=== PATIENT | male | born 1950 | race Caucasian/White ===

== ENCOUNTER 2018-10-17 19:42 | Emergency (ER) | payer OTHER ==
[~2018-10-17] VITALS: Ht 175.3 cm; Wt 102.9 kg
[2018-10-17] MEDS ORDERED: SODIUM CHLORIDE FLUSH 10ML SYR IVF ONE (20:30)
[2018-10-17 20:31] LABS: CULTURE INDICATED? NO; MICROSCOPIC NOT IND
[2018-10-17 20:51] LABS: BASOPHILS # (AUTO) 0.01 x10^3/uL (0-0.1); BASOPHILS % (AUTO) 0 % (0-1); EOSINOPHILS # (AUTO) 0.05 x10^3/uL (0-0.4); EOSINOPHILS % (AUTO) 1 % (1-7); LYMPHOCYTES # (AUTO) 0.74 x10^3/uL (1-3.4); LYMPHOCYTES % (AUTO) 9 % (22-44); MD NO; MEAN CORPUSCULAR HEMOGLOBIN 30.5 pg (27.5-34.5); MEAN CORPUSCULAR HGB CONC 33.4 g/dL (33.2-36.2); MEAN CORPUSCULAR VOLUME 91.4 fL (81-97); MEAN PLATELET VOLUME 8.4 fL (7.4-10.4); MONOCYTES # (AUTO) 0.23 x10^3/uL (0.2-0.8); MONOCYTES % (AUTO) 3 % (2-9); NEUTROPHILS # (AUTO) 7.72 x10^3/uL (1.8-6.8); NEUTROPHILS % (AUTO) 88 % (42-75); PLATELET COUNT 273 x10^3/uL (130-400); RED BLOOD COUNT 5.69 x10^6/uL (4.38-5.82); RED CELL DISTRIBUTION WIDTH 13.3 % (9.4-14.8)
[2018-10-17 21:03] LABS: ANION GAP 11 mmol/L (5-15); CALCIUM 8.7 mg/dL (8.5-10.1); CHLORIDE 104 mmol/L (98-107); CREATININE 1.81 mg/dL (0.7-1.3)
--- NOTE | 2018-10-17 22:15 | NUR ---
PT TO CT
[2018-10-17] MEDS ORDERED: ONDANSETRON 2MG/ML, 2ML ONE (22:58)
[2018-10-17] MEDS ORDERED: ACETAMINOPHEN 500 MG TABLET PO ONE (23:00)
[2018-10-17] MEDS ORDERED: ONDANSETRON 2MG/ML, 2ML IVPush ONE (23:00)
[2018-10-17] MEDS ORDERED: SODIUM CHLORIDE 0.9% 1,000ML IVBOLUS ONE (23:00)
--- NOTE | 2018-10-17 23:03 | NUR ---
PT HERE FOR LOWER ABD PAIN WITH N/V/D THAT STARTED TUESDAY. VSS. PIV STARTED. FLUIDS RUNNING AND MEDICATED FOR NAUSEA. CALL LIGHT IN REACH. WILL PO CHALLANGE IN APPROX 20 MIN
[2018-10-17] MEDS ORDERED: ACETAMINOPHEN 500 MG TABLET ONE (23:28)
--- NOTE | 2018-10-17 23:33 | NUR ---
PT GIVEN PO FLUIDS. WILL REASSESS TOLERANCE
[2018-10-17 23:57] VITALS: BP 132/73
--- NOTE | 2018-10-17 23:58 | NUR ---
PT TOLERATING PO FLUIDS. MD AT BEDSIDE
--- NOTE | 2018-10-18 00:21 | NUR ---
Patient given discharge instructions and they have confirmed that they understand the instructions. Patient ambulatory with steady gait.
== END 2018-10-18 00:23 | disposition home or self-care (01) ==
LOC: ED 23:59
DX: K52.9 Noninfective gastroenteritis and colitis, unspecified (principal); F17.200 Nicotine dependence, unspecified, uncomplicated
CPT/HCPCS: 36415; 74176; 80048; 81003; 82040; 85025; 96361; 96374; 99284; J2405; J7030